=== PATIENT | male | born 1990 | race Caucasian/White ===

== ENCOUNTER 2019-10-31 15:35 | Emergency (ER) | payer BC ==
[~2019-10-31] VITALS: Ht 167.6 cm; Wt 86.2 kg
[2019-10-31 15:35] VITALS: BP_SYST 149
== END 2019-10-31 16:55 | disposition left against medical advice (07) ==
LOC: SED 15:35
DX: F41.9 Anxiety disorder, unspecified (principal); Z53.21 Procedure and treatment not carried out due to patient leaving prior to being seen by health care provider